=== PATIENT | female | born 1955 | race Caucasian/White ===

== ENCOUNTER 2016-08-13 17:44 | Inpatient (IN) | payer OTHER ==
[~2016-08-13] VITALS: Ht 157.5 cm; Wt 54.6 kg
[~2016-08-13 17:44] MED LIST: SYMBICORT1 AER
--- NOTE | 2016-08-13 19:04 | DIAGNOSTIC IMAGING REPORT ---
PROCEDURE: XR CHEST 2 VIEW INDICATION: COUGH TECHNIQUE: PA and lateral views. COMPARISON: 05/06/2012 FINDINGS: Lungs are clear. COPD. Heart and mediastinum are normal. Thorax is normal. IMPRESSION: 1. Negative chest.
--- NOTE | 2016-08-13 20:46 | ED CLINICAL REPORT ---
Clinical Report - Physicians/Mid Levels [facility] [address] [place] [address] 08/13/2016 17:44 Patient: REBECCA CHRISTINE Time Seen: 18:11 Aug 13 2016. Arrived- By private vehicle. Historian- patient. HISTORY OF PRESENT ILLNESS Chief Complaint: COUGH. This started 9 days and is still present. (patient with cough, shortness of breath, chills over the last 9 days,'s has seen her primary care provider 2 times, with completion of azithromycin treatment, finishing on the eighth. Patient reports history of underlying COPD. Denies any recent travel. Denies any fevers.). REVIEW OF SYSTEMS No headache, vomiting, abdominal pain, skin rash or enlarged lymph nodes. All systems otherwise negative, except as recorded above. SOCIAL HISTORY Former smoker. No alcohol use or drug use. ADDITIONAL NOTES The nursing notes have been reviewed. PHYSICAL EXAM Vital Signs: 08/13/2016 17:51 BP: 142/84. HR: 104. RR: 36. O2 saturation: 92%. Temp: 98 F. Pain level now: 8/10. Appearance: Alert. Eyes: Eyes normal inspection. ENT: Ears normal. Nose normal. Pharynx normal. Uvula midline. Neck: Normal inspection. CVS: Tachycardia. Normal heart rate and rhythm. Heart sounds normal. Pulses normal. Respiratory: Respiratory distress. Retractions. Accessory muscle use. Wheezing present. No decreased breath sounds or rales. Abdomen: Soft and nontender. Skin: Skin warm. LABS, X-RAYS, AND EKG Chest X-ray: (IMPRESSION: 1. Negative chest. Electronically Final signed by:Solo Valdez MD 08/13/2016 7:07:40 PM). Laboratory Tests: UA-Culture if indicated: (LUCIA: 08/13/2016 19:33) ( MsgRcvd 08/13/2016 19:59) Final results Test Result Flag Units (Reference) URINE COLOR YELLOW URINE APPEARANCE CLEAR URINE GLUCOSE NEGATIVE (NEGATIVE) URINE BILIRUBIN NEGATIVE (NEGATIVE) URINE KETONE TRACE (NEGATIVE) URINE SPECIFIC GRAVITY >= 1.030 (1.010-1.030) URINE PH 6.0 (5.0-8.0) URINE PROTEIN NEGATIVE (NEGATIVE) URINE UROBILINOGEN 0.2 EU/dL (0.2-1.0) URINE NITRITE NEGATIVE (NEGATIVE) URINE BLOOD NEGATIVE (NEGATIVE) URINE LEUK ESTERASE NEGATIVE (NEGATIVE) URINE RBC 0-1 rbc/hpf (0-1) URINE WBC 1-3 wbc/hpf (0-1) URINE EPITHELIAL CELLS 3-5 EPI/hpf (0-5) URINE BACTERIA TRACE (<1+) (NONE SEEN) URINE COMMENT CULT NOT INDICATED 2+ MUCUSURINE CULTURES ARE SET-UP BASED ON THE FOLLOWING CRITERIA:POSITIVE NITRITEPOSITIVE LEUKOCYTE ESTERASEGREATER THAN 10 WHITE BLOOD CELLSMODERATE (2+) OR GREATER BACTERIA CBC w Diff: (LUCIA: 08/13/2016 18:35) ( [facility] 08/13/[facility] 19:01) Final results Test Result Flag Units (Reference) WHITE BLOOD COUNT 7.6 K/uL (4.5-11.5) RED BLOOD COUNT 5.07 M/uL (4.00-5.20) HEMOGLOBIN 15.2 gm/dL (12.0-16.0) HEMATOCRIT 46.6 H % (36.0-46.0) MEAN CELL VOLUME 92 fL (80-100) MEAN CORPUSCULAR HGB 30 pg (26-34) MEAN CORPUSCULAR HGB CONC 33 g/dL (31-37) RED CELL DISTRIBUTION WIDTH 12.1 % (11.6-14.8) PLATELET COUNT 299 K/uL (150-400) NEUTROPHIL % 52.3 % (50-75) LYMPH % 36.1 % (25-40) MONO % 8.0 % (3-14) EOSINOPHIL % 1.0 % (0-4) BASOPHIL % 2.6 H % (0-2) [id number]: (LUCIA: 08/13/2016 18:35) ( ScgRcvd 08/13/2016 19:24) Final results Test Result Flag Units (Reference) D-DIMER QUANTITATIVE 0.31 ug/mLFEU (0.27-0.52) The primary value of this quantitative assay relates toits negative predictive value (i.e. exclusion) of pulmonaryembolism/deep vein thrombosis/DIC.Elevated levels of d-dimer may also occur with:, age, cancer, inflammation, liver disease,post-op, infection, hematoma, coronary disease, peripheralarteriopathy, bleeding disorders and thrombolytic treatment.Results should be correlated with other clinical andradiological data.Testing Methodology: Latex Immunoassay BMP: (LUCIA: 08/13/2016 18:35) ( MsgRcvd 08/13/2016 19:12) Final results Test Result Flag Units (Reference) GLUCOSE 100 mg/dL (70-110) BUN 16 mg/dL (7-18) CREATININE 1.1 mg/dL (0.6-1.3) Estimated GFR 54.03 mL/min Estimated GFR- >60 mL/min Note: Persistent reduction over 3 months in eGFR<60 mL/min/1.73 m2 defines CKD. Patients with eGFR values>=60 mL/min/1.73 m2 may also have CKD if evidence ofpersistent proteinuria. Additional information may be foundat www.kidney.org. SODIUM 137 mmol/L (136-145) POTASSIUM 3.8 mmol/L (3.5-5.1) CHLORIDE 100 mmol/L (98-107) CARBON DIOXIDE 27 mmol/L (21-32) CALCIUM 9.4 mg/dL (8.5-10.1) . PROGRESS AND PROCEDURES Course of Care: after IV fluid, IV Solu-Medrol, multiple breathing treatments in the ER, patient still able to talk in one to 2 word sentences, 30+ respirations. 2049 Discussed case with science liaison hospitalist, Failed, outpatient treatment. DR. Zendejas, agreed on treatment plan, will see in er [phone], here to see patient. 08/13/2016 20:48 BP: 103/66. HR: 95. RR: 18. O2 saturation: 95%. 08/13/2016 20:18 BP: 98/65. HR: 95. RR: 18. O2 saturation: 96%. Patient is stable. Disposition: Admitted. CLINICAL IMPRESSION Bronchitis. Reactive airway disease with acute bronchospasm. COPD exacerbation. INSTRUCTIONS Drink plenty of fluids. Prescription Medications: Robitussin A-C cough syrup take one (1) teaspoon orally every 6 hours as needed for cough for 5 days. Dispense one hundred twenty (120) mL. Substitution is permissible. Medrol Dosepak: take according to package directions. Dispense one (1) dosepak. No refills. Substitution is permissible. Follow-up: Follow up with your doctor in three days. (Electronically signed by Dolores Mata P.A.-C 08/13/2016 21:46)
--- NOTE | 2016-08-13 20:46 | ED CLINICAL REPORT ---
Clinical Report - Physicians/Mid Levels [facility] [address] [place] [address] 08/13/2016 17:44 Patient: REBECCA CHRISTINE Time Seen: 18:11 Aug 13 2016. Arrived- By private vehicle. Historian- patient. HISTORY OF PRESENT ILLNESS Chief Complaint: COUGH. This started 9 days and is still present. (patient with cough, shortness of breath, chills over the last 9 days,'s has seen her primary care provider 2 times, with completion of azithromycin treatment, finishing on the eighth. Patient reports history of underlying COPD. Denies any recent travel. Denies any fevers.). REVIEW OF SYSTEMS No headache, vomiting, abdominal pain, skin rash or enlarged lymph nodes. All systems otherwise negative, except as recorded above. SOCIAL HISTORY Former smoker. No alcohol use or drug use. ADDITIONAL NOTES The nursing notes have been reviewed. PHYSICAL EXAM Vital Signs: 08/13/2016 17:51 BP: 142/84. HR: 104. RR: 36. O2 saturation: 92%. Temp: 98 F. Pain level now: 8/10. Appearance: Alert. Eyes: Eyes normal inspection. ENT: Ears normal. Nose normal. Pharynx normal. Uvula midline. Neck: Normal inspection. CVS: Tachycardia. Normal heart rate and rhythm. Heart sounds normal. Pulses normal. Respiratory: Respiratory distress. Retractions. Accessory muscle use. Wheezing present. No decreased breath sounds or rales. Abdomen: Soft and nontender. Skin: Skin warm. LABS, X-RAYS, AND EKG Chest X-ray: (IMPRESSION: 1. Negative chest. Electronically Final signed by:Solo Valdez MD 08/13/2016 7:07:40 PM). Laboratory Tests: UA-Culture if indicated: (LUCIA: 08/13/2016 19:33) ( MsgRcvd 08/13/2016 19:59) Final results Test Result Flag Units (Reference) URINE COLOR YELLOW URINE APPEARANCE CLEAR URINE GLUCOSE NEGATIVE (NEGATIVE) URINE BILIRUBIN NEGATIVE (NEGATIVE) URINE KETONE TRACE (NEGATIVE) URINE SPECIFIC GRAVITY >= 1.030 (1.010-1.030) URINE PH 6.0 (5.0-8.0) URINE PROTEIN NEGATIVE (NEGATIVE) URINE UROBILINOGEN 0.2 EU/dL (0.2-1.0) URINE NITRITE NEGATIVE (NEGATIVE) URINE BLOOD NEGATIVE (NEGATIVE) URINE LEUK ESTERASE NEGATIVE (NEGATIVE) URINE RBC 0-1 rbc/hpf (0-1) URINE WBC 1-3 wbc/hpf (0-1) URINE EPITHELIAL CELLS 3-5 EPI/hpf (0-5) URINE BACTERIA TRACE (<1+) (NONE SEEN) URINE COMMENT CULT NOT INDICATED 2+ MUCUSURINE CULTURES ARE SET-UP BASED ON THE FOLLOWING CRITERIA:POSITIVE NITRITEPOSITIVE LEUKOCYTE ESTERASEGREATER THAN 10 WHITE BLOOD CELLSMODERATE (2+) OR GREATER BACTERIA CBC w Diff: (LUCIA: 08/13/2016 18:35) ( [facility] 08/13/2016 19:01) Final results Test Result Flag Units (Reference) WHITE BLOOD COUNT 7.6 K/uL (4.5-11.5) RED BLOOD COUNT 5.07 M/uL (4.00-5.20) HEMOGLOBIN 15.2 gm/dL (12.0-16.0) HEMATOCRIT 46.6 H % (36.0-46.0) MEAN CELL VOLUME 92 fL (80-100) MEAN CORPUSCULAR HGB 30 pg (26-34) MEAN CORPUSCULAR HGB CONC 33 g/dL (31-37) RED CELL DISTRIBUTION WIDTH 12.1 % (11.6-14.8) PLATELET COUNT 299 K/uL (150-400) NEUTROPHIL % 52.3 % (50-75) LYMPH % 36.1 % (25-40) MONO % 8.0 % (3-14) EOSINOPHIL % 1.0 % (0-4) BASOPHIL % 2.6 H % (0-2) [id number]: (LUCIA: 08/13/2016 18:35) ( NcgRcvd 08/13/2016 19:24) Final results Test Result Flag Units (Reference) D-DIMER QUANTITATIVE 0.31 ug/mLFEU (0.27-0.52) The primary value of this quantitative assay relates toits negative predictive value (i.e. exclusion) of pulmonaryembolism/deep vein thrombosis/DIC.Elevated levels of d-dimer may also occur with:, age, cancer, inflammation, liver disease,post-op, infection, hematoma, coronary disease, peripheralarteriopathy, bleeding disorders and thrombolytic treatment.Results should be correlated with other clinical andradiological data.Testing Methodology: Latex Immunoassay BMP: (LUCIA: 08/13/2016 18:35) ( MsgRcvd 08/13/2016 19:12) Final results Test Result Flag Units (Reference) GLUCOSE 100 mg/dL (70-110) BUN 16 mg/dL (7-18) CREATININE 1.1 mg/dL (0.6-1.3) Estimated GFR 54.03 mL/min Estimated GFR- >60 mL/min Note: Persistent reduction over 3 months in eGFR<60 mL/min/1.73 m2 defines CKD. Patients with eGFR values>=60 mL/min/1.73 m2 may also have CKD if evidence ofpersistent proteinuria. Additional information may be foundat www.kidney.org. SODIUM 137 mmol/L (136-145) POTASSIUM 3.8 mmol/L (3.5-5.1) CHLORIDE 100 mmol/L (98-107) CARBON DIOXIDE 27 mmol/L (21-32) CALCIUM 9.4 mg/dL (8.5-10.1) . PROGRESS AND PROCEDURES Course of Care: after IV fluid, IV Solu-Medrol, multiple breathing treatments in the ER, patient still able to talk in one to 2 word sentences, 30+ respirations. 2049 Discussed case with electronic service technician hospitalist, Failed, outpatient treatment. DR. Zendejas, agreed on treatment plan, will see in er 2144, here to see patient. 08/13/2016 20:48 BP: 103/66. HR: 95. RR: 18. O2 saturation: 95%. 08/13/2016 20:18 BP: 98/65. HR: 95. RR: 18. O2 saturation: 96%. Patient is stable. Disposition: Admitted. CLINICAL IMPRESSION Bronchitis. Reactive airway disease with acute bronchospasm. COPD exacerbation. INSTRUCTIONS Drink plenty of fluids. Prescription Medications: Robitussin A-C cough syrup take one (1) teaspoon orally every 6 hours as needed for cough for 5 days. Dispense one hundred twenty (120) mL. Substitution is permissible. Medrol Dosepak: take according to package directions. Dispense one (1) dosepak. No refills. Substitution is permissible. Follow-up: Follow up with your doctor in three days. (Electronically signed by Dolores Mata P.A.-C 08/13/2016 21:46)
--- NOTE | 2016-08-13 20:46 | ED ORDER SUMMARY ---
..... Patient: REBECCA CHRISTINE OrderSheet [facility] VisitID: [id number] [place] [address] 60y, F Registration Date/Time: 08/13/2016 ORDER SHEET Weight: 50.8 kg (stated) Allergies: No Known Drug Allergy GENERAL ORDERS: Chest 2V Urgent (18:08 08/13/2016 EKoroleva P.A.-C) (18:25 MCampbell) CBC w Diff Urgent (18:08 08/13/2016 EKoroleva P.A.-C) (Ack 18:33 LNations ER Tech1) (19:09 Estephanie R.N.) BMP Urgent (18:08 08/13/2016 EKoroleva P.A.-C) (Ack 18:34 LNations ER Tech1) (19:09 Estephanie R.N.) UA-Culture if indicated Urgent (18:08 08/13/2016 EKoroleva P.A.-C) (Ack 18:34 LNations ER Tech1) D-Dimer Urgent (18:08 08/13/2016 EKoroleva P.A.-C) (Ack 18:33 LNations ER Tech1) (19:09 Estephanie R.N.) Vitals (19:07 08/13/2016 EKoroleva P.A.-C) (19:20 Estephanie R.N.) Vitals (20:13 08/13/2016 EKoroleva P.A.-C) (20:20 LMuller) Blood Culture (Yes) (azithromycin) Urgent (20:57 08/13/2016 EKoroleva P.A.-C) (Ack 21:29 NHouse ER Tech1) (21:52 LMuller) MEDICATION ORDERS: DuoNeb Neb Tx 1 unit dose (NOW) (18:09 08/13/2016 EKoroleva P.A.-C) (18:23 RMcCarson) Albuterol Neb Tx 5 mg (NOW) (19:34 08/13/2016 EKoroleva P.A.-C) (Ack 19:36 RCollier R.N.) (19:37 RCollier R.N.) Tylenol w Codeine PO 2 tabs (HIGH ALERT MEDICATION, NOW) (20:23 08/13/2016 EKorolemarva P.A.-C) (Ack 20:43 RCcarlieier R.N.) (20:53 RCollier R.N.) IV FLUIDS: IV NS : initial bolus 1000 mL (1000 mL/hr), then 1000 mL/hr for X1 (NOW); Ernst (18:08 08/13/2016 EKoroleva P.A.-C) (Ack 18:24 Estephanie R.N.) (19:19 Estephanie R.N.) Solu-MEDROL IV 125 mg (NOW) (18:09 08/13/2016 Donovanlemarva P.A.-C) (Ack 18:24 Estephanie R.N.) (19:20 Estephanie R.N.) Levaquin IV 750 mg/150 mL (NOW) (20:57 08/13/2016 Fernando P.A.-C) (Ack 20:58 Ryelyier R.N.) (22:00 Ryleyier R.N.) ORDER SHEET NOTES: [Electronically signed by Dolores Mata-Eren (21:46 08/13/2016)] [Electronically signed by Monserrat Landrum R.N. (00:54 08/14/2016)] [Electronically locked/signed by Monserrat Landrum R.N. (00:54 08/14/2016)]
--- NOTE | 2016-08-13 20:46 | ED NURSING NOTES ---
Clinical Report - Nurses [facility] [address] [place] [address] 08/13/2016 17:44 [id number] Triage time 17:51. Acuity: LEVEL 3. Chief Complaint: COUGH and (DYSPNEA). Alert. SKINNY COMA SCORE: [place] Coma Scale: 15- eyes open spontaneously (4); best verbal response- oriented x 4 (5); best motor response- obeys commands (6). --17:59 Margie Patel R.N. 17:51 08/13/16. BP: 142/84. HR: 104. RR: 36. O2 saturation: 92%. Temp: 98 F (oral). Pain level now: 8/10. --17:59 Margie Patel R.N. Weight: 50.8 kg stated. Height/Length: 63 inches Per Patient. BMI: 19.8. --17:55 Margie Patel R.N. Medications Albuterol Sulfate Inhalation. --18:01 Margie Patel R.N. Another Inhaler. --18:02 Margie Patel R.N. The following entry was struck by Margie Patel R.N., 18:02 (08/13/16) Reason - other. <<STRICKEN ENTRY-- None. --17:52 Margie Patel R.N. --END STRIKE>>. Medication/allergy information source: the patient. --17:59 Margie Patel R.N. Allergies No Known Drug Allergy. --17:52 Margie Patel R.N. History Arrived by private vehicle. Historian: patient. Primary physician (Brii). Onset. (about 9 days). ( sent from doctor's office, has had a Z-krupa, breathing tx in the office, office reported a negative flu swab). She has had a headache. SOCIAL HX: Former smoker, end date 09/2015. No alcohol use or drug use. FALL RISK ASSESSMENT: Fall risk assessment completed. No fall risk identified. FUNCTIONAL ASSESSMENT: Functional assessment: no impairments noted. LEARNING NEEDS ASSESSMENT: The learning needs assessment revealed no barriers. --17:59 Margie Patel R.N. PROBLEMS: Sprain. Abdominal Pain. Immunizations. Bulging disch. Herniated Disk. --17:53 Margie Patel R.N. Gastroesophageal Reflux Disease [RuleOut]. --17:53 Margie Patel R.N. COPD - Chronic Obstructive Pulmonary Disease. --17:55 Margie Patel R.N. ADDITIONAL SURGERIES: Tubal Ligation. --17:54 Margie Patel R.N. Assessment GENERAL / NEURO / PSYCH: The patient is awake and alert, is oriented and cooperative and appears uncomfortable. She has good eye contact. RESPIRATORY: Mild respiratory distress. Cough productive of thick, yellow sputum. CVS: Cardiac rhythm: sinus tachycardia. SKIN: Skin is warm and dry. --17:59 Margie Patel R.N. Interventions ID band on patient. To treatment room. --17:59 Margie Patel R.N. PHYSICAL ASSESSMENT 18:08/13/16. To room via wheelchair. Patient gowned. GENERAL / NEURO / PSYCH: The patient is awake and alert, is oriented and cooperative and appears uncomfortable. She has good eye contact. RESPIRATORY: Mild respiratory distress. The patient can speak a few words at a time. Cough. SKIN: Skin is warm and dry. --18:04 Margie Patel R.N. NURSING PROGRESS NOTES 18:08/13/16. trimming assembler, pulse oximeter and NIBP monitor placed on patient. Patient gowned. Head of bed elevated. Call light placed in reach. Side rails up x 1. Bed placed in lowest position. Brakes of bed on. --18:04 Margie Patel R.N. 18:23 08/13/2016 Duoneb (Ipratropium-Albuterol) Neb TX Nebulizer 1 unit dose given. --18:23 Shanique Rehman 18:30 08/13/2016 Site #1 started via IV in the right antecubital space with an 20g angiocath, with aseptic technique and good blood return; one attempt. Blood drawn: rainbow set. Labeled in the presence of the patient and sent to the lab. --19:19 Margie Patel R.N. 18:30 08/13/2016 Started bag #1 1000 mL IV Fluids IV NS (Saline); at 1000 mL/hr over 1 hour(s) via site #1 --19:19 Margie Patel R.N. 19:20 08/13/2016 SOLU-MEDROL (MethylPREDNISolone Sodium Succ) IVP 125 mg given over 2 minute(s) via site #1. Allergies verified and confirmed 5 rights. IV patency established. IV site checked: no pain, redness, or swelling. IV flushed thoroughly pre- and post-medication administration. IVP given by RN. --19:20 Margie Patel R.N. 19:18 08/13/16. BP: 110/80. HR: 98. RR: 18. O2 saturation: 97%. --19:21 Virginia Kuhn Care transferred and report received. --19:30 Monserrat Landrum R.N. 19:10 08/13/2016 IV Fluids IV NS Bag Change: bag #1 infused. Total amount infused: 1000. STARTED bag #2 (1000 mL) at 100 mL/hr. --19:35 Margie Patel R.N. 19:37 08/13/2016 Albuterol Neb TX Nebulizer 5 mg given. Given by the respiratory therapist. Allergies verified and confirmed 5 rights. --19:37 Monserrat Landrum R.N. 20:18 08/13/16. BP: 98/65. HR: 95. RR: 18. O2 saturation: 96%. --20:20 Virginia Kuhn 20:48 08/13/16. BP: 103/66. HR: 95. RR: 18. O2 saturation: 95% on nasal cannula. --20:49 Monserrat Landrum R.N. The patient reports that after medication, breathing treatment and oxygen , wheezing is still present and currently mild in severity (audible, still working to breath). --20:50 Monserrat Landrum R.N. 20:50 08/13/2016 TYLENOL W CODEINE (Acetaminophen-Codeine) PO Tablets 2 tab given. Allergies verified and confirmed 5 rights. --20:53 Monserrat Landrum R.N. 21:58 08/13/2016 Started 750 mg of Levaquin (Levofloxacin) IVPB in bag #1 150 mL; at 100 mL/hr over 90 minute(s) via site #1 via IV pump. Allergies verified and confirmed 5 rights. IV patency established. IV site checked: no pain, redness, or swelling. IV flushed thoroughly pre- and post-medication administration. --22:00 Monserrat Landrum R.N. DISPOSITION / DISCHARGE 22:50 08/13/16. HR: 87. RR: 17. O2 saturation: 94%. Payne-Rodriguez pain scale: 4/10. --22:51 Monserrat Landrum R.N. Report was given to a nurse via a phone call. Report included patient's care, treatment, medications, reviewed medication reconcilliation, and condition (including any recent changes or anticipated changes). All questions were answered. Report was acknowledged and care was transferred. --22:51 Monserrat Landrum R.N. 22:56 08/13/16. BP: 110/60. --22:56 Monserart Landrum R.N. 22:56 08/13/2016 Site #[address] upon admission; patent. --22:56 Monserrat Landrum R.N. 22:58 08/13/2016 IV Fluids IV NS Continued: upon admission at the rate of 100 mL/hr. 250 mL remaining bag #2. IV patency established. IV site checked: no pain, redness, or swelling. IV flushed thoroughly. (bag has been hanging to gravity, not infused at rate ordered.). --22:58 Monserrat Landrum R.N. 22:59 08/13/2016 Levaquin IVPB Continued: upon admission at the rate of 100 mL/hr. 50 mL remaining bag #1. IV patency established. IV site checked: no pain, redness, or swelling. IV flushed thoroughly. --22:59 Monserrat Landrum R.N. Admitted to Acute Care. Patient's personal items include: purse, clothing; items were placed in belongings bag and transported with the patient. Collection of belongings was witnessed by 1 nurse. --23:00 Monserrat Landrum R.N. Locked/Released at 08/14/2016 0:54 by Monserrat Landrum R.N.
--- NOTE | 2016-08-13 20:46 | ED ORDER SUMMARY ---
..... Patient: REBECCA CHRISTINE OrderSheet [facility] VisitID: [id number] [place] [address] 60y, F Registration Date/Time: 08/13/2016 ORDER SHEET Weight: 50.8 kg (stated) Allergies: No Known Drug Allergy GENERAL ORDERS: Chest 2V Urgent (18:08 08/13/2016 EKoroleva P.A.-C) (18:25 MCampbell) CBC w Diff Urgent (18:08 08/13/2016 EKoroleva P.A.-C) (Ack 18:33 LNations ER Tech1) (19:09 Estephanie R.N.) BMP Urgent (18:08 08/13/2016 EKoroleva P.A.-C) (Ack 18:34 LNations ER Tech1) (19:09 Estephanie R.N.) UA-Culture if indicated Urgent (18:08 08/13/2016 EKoroleva P.A.-C) (Ack 18:34 LNations ER Tech1) D-Dimer Urgent (18:08 08/13/2016 EKoroleva P.A.-C) (Ack 18:33 LNations ER Tech1) (19:09 Estehpanie R.N.) Vitals (19:07 08/13/2016 EKoroleva P.A.-C) (19:20 Estephanie R.N.) Vitals (20:13 08/13/2016 EKoroleva P.A.-C) (20:20 LMuller) Blood Culture (Yes) (azithromycin) Urgent (20:57 08/13/2016 EKoroleva P.A.-C) (Ack 21:29 NHouse ER Tech1) (21:52 LMuller) MEDICATION ORDERS: DuoNeb Neb Tx 1 unit dose (NOW) (18:09 08/13/2016 EKoroleva P.A.-C) (18:23 RMcCarson) Albuterol Neb Tx 5 mg (NOW) (19:34 08/13/2016 EKoroleva P.A.-C) (Ack 19:36 RCollier R.N.) (19:37 RCollier R.N.) Tylenol w Codeine PO 2 tabs (HIGH ALERT MEDICATION, NOW) (20:23 08/13/2016 EKorolemarva P.A.-C) (Ack 20:43 RCcarlieier R.N.) (20:53 RCollier R.N.) IV FLUIDS: IV NS : initial bolus 1000 mL (1000 mL/hr), then 1000 mL/hr for X1 (NOW); Ernst (18:08 08/13/2016 EKoroleva P.A.-C) (Ack 18:24 Estephanie R.N.) (19:19 Estephanie R.N.) Solu-MEDROL IV 125 mg (NOW) (18:09 08/13/2016 Donovanlemarva P.A.-C) (Ack 18:24 Estephanie R.N.) (19:20 Estephanie R.N.) Levaquin IV 750 mg/150 mL (NOW) (20:57 08/13/2016 Fernando P.A.-C) (Ack 20:58 Ryleyier R.N.) (22:00 Ryleyier R.N.) ORDER SHEET NOTES: [Electronically signed by Dolores Mata-Eren (21:46 08/13/2016)] [Electronically signed by Monserrat Landrum R.N. (00:54 08/14/2016)] [Electronically locked/signed by Monserrat Landrum R.N. (00:54 08/14/2016)]
[2016-08-13 23:17] VITALS: BP 108/65
--- NOTE | 2016-08-14 00:54 | ED DISCHARGE INSTRUCTIONS ---
Patient: REBECCA CHRISTINE General Instructions [facility] VisitID: [id number] [place] [address] 60y, F Registration Date/Time: 08/13/2016 Bronchitis. Reactive airway disease with acute bronchospasm. COPD exacerbation. INSTRUCTIONS Drink plenty of fluids. Prescription Medications: Robitussin A-C cough syrup take one (1) teaspoon orally every 6 hours as needed for cough for 5 days. Dispense one hundred twenty (120) mL. Substitution is permissible. Medrol Dosepak: take according to package directions. Dispense one (1) dosepak. No refills. Substitution is permissible. Follow-up: Follow up with your doctor in three days. ADDITIONAL INFORMATION Bronchitis, Viral (Adult: No Abx) You have a viral bronchitis. This illness is contagious during the first few days and is spread through the air by coughing and sneezing, or by direct contact (touching the sick person and then touching your own eyes, nose, or mouth). Most viral illnesses resolve within 10-14 days with rest and simple home remedies, although they may sometimes last for several weeks. Antibiotics will not kill a virus and are generally not prescribed for this condition. Home Care: If symptoms are severe, rest at home for the first 2-3 days. When resuming activity, don't let yourself become overly tired. Do not smoke and avoid the smoke of others. You may use acetaminophen (Tylenol) or ibuprofen (Motrin, Advil) to control fever or pain, unless another pain medicine was prescribed. [NOTE: If you have chronic liver or kidney disease or ever had a stomach ulcer or GI bleeding, talk with your doctor before using these medicines.] (Aspirin should never be used in anyone under 18 years of age who is ill with a fever. It may cause severe liver damage.) Your appetite may be poor so a light diet is fine. Avoid dehydration by drinking 6-8 glasses of fluids per day (water, sport drinks such as Gatorade, juices, tea, soup, etc.). Extra fluids will help loosen secretions in the nose and lung. Amcr-zce-xuxkaqf cold medicines will not shorten the length of the illness, but may be helpful for cough (Robitussin DM), sore throat (Chloraseptic lozenges or spray), nasal and sinus congestion (Actifed or Sudafed). [NOTE: Do not use decongestants if you have high blood pressure.] Follow Up with your doctor or as directed by our staff if you are not improving over the next week. NOTE: If you are age 65 or older, or if you have chronic asthma or COPD, we recommend a PNEUMOCOCCAL VACCINATION every five years and a yearly INFLUENZAVACCINATION (FLU-SHOT) every . Ask your doctor about this. If you had an X-ray, a radiologist will review it. You will be notified of any new findings that may affect your care.] Get Prompt Medical Attention if any of the following occur: Fever over 100.4F (38.0C) for more than three days Trouble breathing, wheezing or pain with breathing Coughing up blood or increased amounts of colored sputum Weakness, drowsiness, headache, facial pain, ear pain or a stiff neck You have been given the following additional information: Bronchitis, No Antibiotic (Adult) (Electronically signed by Dolores Mata P.A.-C 08/13/2016 21:46)
--- NOTE | 2016-08-14 00:54 | ED MAR SUMMARY ---
..... Medication Administration Record [facility] [address] [facility] [place] [address] Patient: REBECCA CHRISTINE Visit ID: [id number] 60y, F Weight: 50.8 kg Height/Length: 63 in BMI: 19.8 ALLERGIES: No Known Drug Allergy Given 18:23 08/13/2016 Shanique Rehman, Medication Administered: DUONEB [NEB TX] (IPRATROPIUM-ALBUTEROL), Dose: 1 unit dose Nebulizer Neb TX. Medication Ordered: DuoNeb Neb Tx 1 unit dose (NOW). Start 18:30 08/13/2016 Margie Patel R.N., Continued Upon Admission 22:58 08/13/2016 Monserrat Landrum R.N. Medication Administered: IV NS (SALINE), Dose: IV Fluids over 1 hour(s), Rate: 1000 mL/hr, Dispensed: 1000 mL bag, Site: #1 right AC. Medication Ordered: IV NS : initial bolus 1000 mL (1000 mL/hr), then 1000 mL/hr for X1 (NOW); Ernst. Given 19:20 08/13/2016 Margie Patel R.N. Medication Administered: SOLU-MEDROL [IVP] (METHYLPREDNISOLONE SODIUM SUCC), Dose: 125 mg IVP over 2 minute(s), Site: #1 right AC. Medication Ordered: Solu-MEDROL IV 125 mg (NOW). Given 19:37 08/13/2016 Monserrat Landrum R.N. Medication Administered: ALBUTEROL [NEB TX], Dose: 5 mg Nebulizer Neb TX. Medication Ordered: Albuterol Neb Tx 5 mg (NOW). Given 20:50 08/13/2016 Monserrat Landrum R.N. Medication Administered: TYLENOL W CODEINE [PO] (ACETAMINOPHEN-CODEINE), Dose: 2 tab Tablets PO. Medication Ordered: Tylenol w Codeine PO 2 tabs (HIGH ALERT MEDICATION, NOW). Start 21:58 08/13/2016 Monserrat Landrum R.N., Continued Upon Admission 22:59 08/13/2016 Monserrat Landrum R.N. Medication Administered: LEVAQUIN [IVPB] (LEVOFLOXACIN), Dose: 750 mg IVPB over 90 minute(s), Rate: 100 mL/hr, Dispensed: 150 mL bag, Site: #1 right AC. Medication Ordered: Levaquin IV 750 mg/150 mL (NOW).
--- NOTE | 2016-08-14 00:54 | ED MED RECONCILIATION SUMMARY ---
Patient: REBECCA CHRISTINE Medication Reconciliation Report [facility] VisitID: [id number] [address] [place] [address] 60y, F Registration Date/Time: 08/13/2016 Weight: 50.8 kg Height/Length: 63 in. BMI: 19.8 ALLERGIES: No Known Drug Allergy The patient's Home Medications are listed below: THE FOLLOWING MEDICATIONS NEED TO BE RECONCILED: Albuterol Sulfate Inhalation Another Inhaler The source(s) of the original Home Medication information: patient The following Medications were given to the patient in the Emergency Department: Duoneb [Neb Tx] Neb TX 1 unit dose, administered: 08/13/2016 6:23:00 PM IV NS IV Fluids bolus 0, then 1000 mL/hr, administered: 08/13/2016 6:30:00 PM SOLU-MEDROL [IVP] IVP 125 mg, administered: 08/13/2016 7:20:00 PM Albuterol [Neb Tx] Neb TX 5 mg, administered: 08/13/2016 7:37:00 PM TYLENOL W CODEINE [PO] PO 2 tab, administered: 08/13/2016 8:50:00 PM Levaquin [IVPB] IVPB bolus 0, then 750 mg 100 mL/hr, administered: 08/13/2016 9:58:00 PM The following Medications were prescribed to the patient: Robitussin A-C cough syrup take one (1) teaspoon orally every 6 hours as needed for cough for 5 days. Dispense one hundred twenty (120) mL. Substitution is permissible. -- Dolores Mata P.A.-C Medrol Dosepak: take according to package directions. Dispense one (1) dosepak. No refills. Substitution is permissible. -- Dolores Mata P.A.-C
--- NOTE | 2016-08-14 00:54 | ED MAR SUMMARY ---
..... Medication Administration Record [facility] [address] [facility] [place] [address] Patient: REBECCA CHRISTINE Visit ID: [id number] 60y, F Weight: 50.8 kg Height/Length: 63 in BMI: 19.8 ALLERGIES: No Known Drug Allergy Given 18:23 08/13/2016 Shanique Rehman, Medication Administered: DUONEB [NEB TX] (IPRATROPIUM-ALBUTEROL), Dose: 1 unit dose Nebulizer Neb TX. Medication Ordered: DuoNeb Neb Tx 1 unit dose (NOW). Start 18:30 08/13/2016 Margie Patel R.N., Continued Upon Admission 22:58 08/13/2016 Monserrat Landrum R.N. Medication Administered: IV NS (SALINE), Dose: IV Fluids over 1 hour(s), Rate: 1000 mL/hr, Dispensed: 1000 mL bag, Site: #1 right AC. Medication Ordered: IV NS : initial bolus 1000 mL (1000 mL/hr), then 1000 mL/hr for X1 (NOW); Ernst. Given 19:20 08/13/2016 Margie Patel R.N. Medication Administered: SOLU-MEDROL [IVP] (METHYLPREDNISOLONE SODIUM SUCC), Dose: 125 mg IVP over 2 minute(s), Site: #1 right AC. Medication Ordered: Solu-MEDROL IV 125 mg (NOW). Given 19:37 08/13/2016 Monserrat Landrum R.N. Medication Administered: ALBUTEROL [NEB TX], Dose: 5 mg Nebulizer Neb TX. Medication Ordered: Albuterol Neb Tx 5 mg (NOW). Given 20:50 08/13/2016 Monserrat Landrum R.N. Medication Administered: TYLENOL W CODEINE [PO] (ACETAMINOPHEN-CODEINE), Dose: 2 tab Tablets PO. Medication Ordered: Tylenol w Codeine PO 2 tabs (HIGH ALERT MEDICATION, NOW). Start 21:58 08/13/2016 Monserrat Landrum R.N., Continued Upon Admission 22:59 08/13/2016 Monserrat Landrum R.N. Medication Administered: LEVAQUIN [IVPB] (LEVOFLOXACIN), Dose: 750 mg IVPB over 90 minute(s), Rate: 100 mL/hr, Dispensed: 150 mL bag, Site: #1 right AC. Medication Ordered: Levaquin IV 750 mg/150 mL (NOW).
--- NOTE | 2016-08-14 00:54 | ED MED RECONCILIATION SUMMARY ---
Patient: REBECCA CHRISTINE Medication Reconciliation Report [facility] VisitID: [id number] [address] [place] [address] 60y, F Registration Date/Time: 08/13/2016 Weight: 50.8 kg Height/Length: 63 in. BMI: 19.8 ALLERGIES: No Known Drug Allergy The patient's Home Medications are listed below: THE FOLLOWING MEDICATIONS NEED TO BE RECONCILED: Albuterol Sulfate Inhalation Another Inhaler The source(s) of the original Home Medication information: patient The following Medications were given to the patient in the Emergency Department: Duoneb [Neb Tx] Neb TX 1 unit dose, administered: 08/13/2016 6:23:00 PM IV NS IV Fluids bolus 0, then 1000 mL/hr, administered: 08/13/2016 6:30:00 PM SOLU-MEDROL [IVP] IVP 125 mg, administered: 08/13/2016 7:20:00 PM Albuterol [Neb Tx] Neb TX 5 mg, administered: 08/13/2016 7:37:00 PM TYLENOL W CODEINE [PO] PO 2 tab, administered: 08/13/2016 8:50:00 PM Levaquin [IVPB] IVPB bolus 0, then 750 mg 100 mL/hr, administered: 08/13/2016 9:58:00 PM The following Medications were prescribed to the patient: Robitussin A-C cough syrup take one (1) teaspoon orally every 6 hours as needed for cough for 5 days. Dispense one hundred twenty (120) mL. Substitution is permissible. -- Dolores Mata P.A.-C Medrol Dosepak: take according to package directions. Dispense one (1) dosepak. No refills. Substitution is permissible. -- Dolores Mata P.A.-C
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
[2016-08-14 02:24] VITALS: BP 94/54
[2016-08-14 07:15] VITALS: BP 110/64
[2016-08-14 10:56] VITALS: BP 98/64
[2016-08-14 14:52] VITALS: BP 104/61
[2016-08-14 18:05] VITALS: BP 109/65
[2016-08-14 22:46] VITALS: BP 101/56
--- NOTE | 2016-08-15 00:59 | Progress Note ---
Subjective General SOB/cough very mildly improved. No nausea, vomitting, diarrhea, constipation. + abdominal pain / chest pain with coughing. No chest pain when not coughing. Physical Exam Vital Signs / I&Os Vital Signs Date Time Temp Pulse Resp B/P Pulse O2 O2 Flow FiO2 Ox Delivery Rate 08/14 2246 36.7 84 16 101/56 92 Room Air 0.0 08/14 1805 36.8 83 16 109/65 92 Room Air 08/14 1452 36.7 95 18 104/61 91 Room Air 08/14 1056 36.9 80 18 98/64 94 Nasal 0.0 Cannula 08/14 0715 36.6 74 18 110/64 94 Nasal 2.0 Cannula 08/14 0350 18 94 Nasal 2.0 Cannula 08/14 0224 36.7 84 22 94/54 90 Room Air I&O 08/15 0000 08/14 1600 08/14 0800 Intake Total 1169 680 795 Output Total 650 400 400 Balance 519 280 395 General Appearance Alert, Cooperative, No acute distress Lungs Course diffusely with difuse moderate wheezing and Ok air movement, but air movement still significantly decreased. Cardiovascular Regular rate and rhythm, Normal S1 and S2, No murmurs, gallops, rubs Abdomen Normal bowel sounds, Soft, No tenderness Extremities No edema Assessment and Plan Problem List 1. COPD exacerbation Plan On steroids, duonebs, and antibiotics. Possible very mild improvement today. Continues to have significant, worrisome symptoms. Will monitor x 1-2 more days.
[2016-08-15 02:11] VITALS: BP 106/62
[2016-08-15 07:24] VITALS: BP 111/64
[2016-08-15 11:45] VITALS: BP 112/58
[2016-08-15 14:45] VITALS: BP 106/54
--- NOTE | 2016-08-15 17:58 | Progress Note ---
Subjective General Patient is seen at the [facility], severe cough and extensive wheezing present Physical Exam Vital Signs / I&Os Vital Signs Date Time Temp Pulse Resp B/P Pulse O2 O2 Flow FiO2 Ox Delivery Rate 08/15 1445 98.2 95 18 106/54 94 Room Air 08/15 1145 97.9 93 18 112/58 92 08/15 0803 Room Air 08/15 0724 97.9 99 18 111/64 99 Room Air 0.0 08/15 0211 98.4 87 16 106/62 91 Room Air 0.0 08/14 2246 98.1 84 16 101/56 92 Room Air 0.0 08/14 1805 98.2 83 16 109/65 92 Room Air I&O 08/14 0800 08/14 1600 08/15 0000 Intake Total 955 560 3746 Output Total 400 400 650 Balance 395 280 519 General Appearance Alert, Oriented X3, No acute distress HEENT PERRLA, Moist mucous membranes Lungs Clear to auscultation, Normal air movement Neck Supple, No JVD Cardiovascular Regular rate and rhythm, Normal S1 and S2 Abdomen Normal bowel sounds, Soft, No tenderness, No guarding Extremities No edema Neurological No lateralizing signs LAB Results Laboratory Tests 08/15 08/15 08/15 0500 0555 0555 Chemistry Plasma Sodium (136 - 145 mmol/L) 142 Plasma Potassium (3.5 - 5.1 mmol/L) 3.6 Plasma Chloride (98 - 107 mmol/L) 109 CO2 (Enzymatic) (21 - 32 mmol/L) 26 BUN (7 - 18 mg/dL) 11 Creatinine (0.6 - 1.3 mg/dL) 1.0 Est GFR ( Amer) (mL/min) >60 Est GFR (Non-Af Amer) (mL/min) >60 Glucose (70 - 110 mg/dL) 140 Plasma Calcium (8.5 - 10.1 mg/dL) 8.6 Procalcitonin (0 - 0.5 ng/mL) <0.5 Cancelled Hematology WBC (4.5 - 11.5 K/uL) 16.4 RBC (4.00 - 5.20 M/uL) 3.88 Hgb (12.0 - 16.0 gm/dL) 11.9 Hct (36.0 - 46.0 %) 36.2 MCV (80 - 100 fL) 93 MCH (26 - 34 pg) 31 RDW (11.6 - 14.8 %) 12.1 Neut % (Auto) (50 - 75 %) 94.4 Lymph % (Auto) (25 - 40 %) 4.7 [place] % (Auto) (3 - 14 %) 0.9 Eos % (Auto) (0 - 4 %) 0 Baso % (Auto) (0 - 2 %) 0 Plt Count, EDTA (150 - 400 K/uL) 222 PUBS MCHC (31 - 37 g/dL) 33 Assessment and Plan Problem List 1. COPD exacerbation Plan C/w current regimen of steroids an dduo nebs E&M Codes Rounding: Inpt-Moderate/19079
--- NOTE | 2016-08-15 17:58 | Progress Note ---
Subjective General Patient [facility], severe cough and extensive wheezing present Physical Exam Vital Signs / I&Os Vital Signs Date Time Temp Pulse Resp B/P Pulse O2 O2 Flow FiO2 Ox Delivery Rate 08/15 1445 98.2 95 18 106/54 94 Room Air 08/15 1145 97.9 93 18 112/58 92 08/15 0803 Room Air 08/15 0724 97.9 99 18 111/64 99 Room Air 0.0 08/15 0211 98.4 87 16 106/62 91 Room Air 0.0 08/14 2246 98.1 84 16 101/56 92 Room Air 0.0 08/14 1805 98.2 83 16 109/65 92 Room Air I&O 08/14 0800 08/14 1600 08/15 0000 Intake Total 817 915 0385 Output Total 400 400 650 Balance 395 280 519 General Appearance Alert, Oriented X3, No acute distress HEENT PERRLA, Moist mucous membranes Lungs Clear to auscultation, Normal air movement Neck Supple, No JVD Cardiovascular Regular rate and rhythm, Normal S1 and S2 Abdomen Normal bowel sounds, Soft, No tenderness, No guarding Extremities No edema Neurological No lateralizing signs LAB Results Laboratory Tests 08/15 08/15 08/15 0500 0555 0555 Chemistry Plasma Sodium (136 - 145 mmol/L) 142 Plasma Potassium (3.5 - 5.1 mmol/L) 3.6 Plasma Chloride (98 - 107 mmol/L) 109 CO2 (Enzymatic) (21 - 32 mmol/L) 26 BUN (7 - 18 mg/dL) 11 Creatinine (0.6 - 1.3 mg/dL) 1.0 Est GFR ( Amer) (mL/min) >60 Est GFR (Non-Af Amer) (mL/min) >60 Glucose (70 - 110 mg/dL) 140 Plasma Calcium (8.5 - 10.1 mg/dL) 8.6 Procalcitonin (0 - 0.5 ng/mL) <0.5 Cancelled Hematology WBC (4.5 - 11.5 K/uL) 16.4 RBC (4.00 - 5.20 M/uL) 3.88 Hgb (12.0 - 16.0 gm/dL) 11.9 Hct (36.0 - 46.0 %) 36.2 MCV (80 - 100 fL) 93 MCH (26 - 34 pg) 31 RDW (11.6 - 14.8 %) 12.1 Neut % (Auto) (50 - 75 %) 94.4 Lymph % (Auto) (25 - 40 %) 4.7 [place] % (Auto) (3 - 14 %) 0.9 Eos % (Auto) (0 - 4 %) 0 Baso % (Auto) (0 - 2 %) 0 Plt Count, EDTA (150 - 400 K/uL) 222 PUBS MCHC (31 - 37 g/dL) 33 Assessment and Plan Problem List 1. COPD exacerbation Plan C/w current regimen of steroids an dduo nebs E&M Codes Rounding: Inpt-Moderate/37107
[2016-08-15 18:30] VITALS: BP 109/59
[2016-08-15 22:26] VITALS: BP 104/59
[2016-08-16 02:12] VITALS: BP 110/60
[2016-08-16 06:59] VITALS: BP 151/56
[2016-08-16 10:58] VITALS: BP 138/66
[2016-08-16 14:22] VITALS: BP 117/64
--- NOTE | 2016-08-16 14:36 | Progress Note ---
Subjective General Patient is seen at the bedside, c/o cough and wheezing Constitutional Denies: Fever, Chills, Sweats, Weakness. Eyes Denies: Vision Change, Conjunctival Inflammation, Eyelid Inflammation, Redness. ENT Denies: Nasal Discharge, Nasal Congestion, Mouth Pain, Throat Swelling. Respiratory Cough, Dry, SOB w/exertion, Wheezing. Cardiovascular Denies: Chest Pain, Palpitations, Orthopnea, PND. Gastrointestinal Denies: Nausea, Vomiting, Abdominal Pain. Genitourinary Denies: Dysuria, Frequency, Incontinence, Hematuria. Neurological Denies: Incoordination, Change in speech, Confusion. Physical Exam Vital Signs / I&Os Vital Signs Date Time Temp Pulse Resp B/P Pulse O2 O2 Flow FiO2 Ox Delivery Rate 08/16 1422 97.9 92 16 117/64 93 Room Air 0.0 08/16 1058 114 22 138/66 92 Room Air 0.0 08/16 0953 0.0 08/16 0659 97.5 68 18 151/56 92 Room Air 0.0 08/16 0212 98.4 84 16 110/60 93 Room Air 08/16 0119 0.0 08/15 2328 Room Air 08/15 2226 98.1 84 18 104/59 94 Room Air 0.0 08/15 1830 97.9 93 18 109/59 94 Room Air 08/15 1445 98.2 95 18 106/54 94 Room Air I&O 08/15 0800 08/15 1600 08/16 0000 Intake Total 570 500 120 Output Total 400 700 Balance 170 -200 120 General Appearance Alert, Oriented X3, No acute distress HEENT Atraumatic, PERRLA, Moist mucous membranes Assessment and Plan Problem List 1. COPD exacerbation Plan Patient still very symptomatic will change oral prednisone to IV solumedrol c/w duo nebs every 4 hrly E&M Codes Rounding: Inpt-Moderate/14045
[2016-08-16 18:00] VITALS: BP 134/65
[2016-08-16 22:27] VITALS: BP 115/66
[2016-08-17 01:51] VITALS: BP 118/74
[2016-08-17 06:59] VITALS: BP 121/79
[2016-08-17 11:15] VITALS: BP 111/65
[2016-08-17 14:53] VITALS: BP 116/66
--- NOTE | 2016-08-17 15:20 | DIAGNOSTIC IMAGING REPORT ---
PROCEDURE: XR CHEST 1 VIEW INDICATION: worsening cough r/o pneumonia TECHNIQUE: Portable AP view 03:00 p.m. COMPARISON: Chest 08/13/2016 and 05/06/2012 FINDINGS: Lungs are clear. Heart and mediastinum are normal. Thorax is normal. IMPRESSION: 1. Negative chest.
--- NOTE | 2016-08-17 17:18 | Progress Note ---
Subjective General Patient says she is still not feeling good, says her symptoms are not better, and c/o severe cough with sob Constitutional Denies: Fever, Chills, Sweats, Weakness. ENT Denies: Nasal Discharge, Nasal Congestion, Mouth Pain, Mouth Swelling, Throat Pain, Throat Swelling. Respiratory Cough, Dry, SOB w/exertion, Wheezing. Cardiovascular Denies: Chest Pain, Palpitations, Orthopnea, PND, Edema. Gastrointestinal Denies: Nausea, Vomiting, Abdominal Pain, Diarrhea, Constipation. Genitourinary Denies: Frequency, Incontinence, Hematuria. Musculoskeletal Denies: Arm Pain, Back Pain, Hand Pain, Leg Pain. Neurological Denies: Numbness, Incoordination, Change in speech, Confusion, Seizures. Physical Exam Vital Signs / I&Os Vital Signs Date Time Temp Pulse Resp B/P Pulse O2 O2 Flow FiO2 Ox Delivery Rate 08/17 1453 97.9 84 20 116/66 90 Room Air 0.0 08/17 1115 97.0 84 20 111/65 96 Room Air 0.0 08/17 0900 Room Air 0.0 08/17 0659 98.2 91 20 121/79 95 Room Air 0.0 08/17 0151 97.9 96 20 118/74 93 Room Air 08/17 0030 Room Air 0.0 08/16 2303 0.0 08/16 2227 97.7 95 20 115/66 91 0.0 08/16 1800 97.9 115 16 134/65 93 Room Air 0.0 I&O 08/16 0800 08/16 1600 08/17 0000 Intake Total 500 760 Output Total 500 1000 300 Balance 0 -240 -300 General Appearance Alert, Oriented X3, No acute distress HEENT PERRLA, Moist mucous membranes Lungs wheezing present Neck No JVD Cardiovascular Regular rate and rhythm, Normal S1 and S2 Abdomen Normal bowel sounds, Soft, No tenderness, No guarding Extremities No edema Neurological No lateralizing signs LAB Results Laboratory Tests 08/17 0533 Chemistry Plasma Sodium (136 - 145 mmol/L) 142 Plasma Potassium (3.5 - 5.1 mmol/L) 3.9 Plasma Chloride (98 - 107 mmol/L) 107 CO2 (Enzymatic) (21 - 32 mmol/L) 29 BUN (7 - 18 mg/dL) 13 Creatinine (0.6 - 1.3 mg/dL) 1.0 Est GFR ( Amer) (mL/min) >60 Est GFR (Non-Af Amer) (mL/min) >60 Glucose (70 - 110 mg/dL) 124 Plasma Calcium (8.5 - 10.1 mg/dL) 8.6 Hematology WBC (4.5 - 11.5 K/uL) 12.0 RBC (4.00 - 5.20 M/uL) 3.96 Hgb (12.0 - 16.0 gm/dL) 11.9 Hct (36.0 - 46.0 %) 36.9 MCV (80 - 100 fL) 93 MCH (26 - 34 pg) 30 RDW (11.6 - 14.8 %) 12.7 Neut % (Auto) (50 - 75 %) 87.3 Lymph % (Auto) (25 - 40 %) 9.2 [place] % (Auto) (3 - 14 %) 3.3 Eos % (Auto) (0 - 4 %) 0 Baso % (Auto) (0 - 2 %) 0.2 Plt Count, EDTA (150 - 400 K/uL) 237 PUBS MCHC (31 - 37 g/dL) 32 Assessment and Plan Problem List 1. COPD exacerbation Plan patient still symptomatic will increase steroid dos to 60mh IV q 8hrly duo nebs as ordered c/w levoquin will start gentle IV hydration E&M Codes Rounding: Inpt-Moderate/[id number]
[2016-08-17 18:25] VITALS: BP 112/67
[2016-08-17 22:25] VITALS: BP 119/76
[2016-08-18 02:16] VITALS: BP 133/79; BP 150/83
[2016-08-18 06:57] VITALS: BP 143/85
[2016-08-18 10:55] VITALS: BP 133/82
[2016-08-18 14:51] VITALS: BP 110/69
--- NOTE | 2016-08-18 15:54 | Progress Note ---
Subjective General Patient is seen at the bedside, still wheezing Constitutional Denies: Fever, Chills, Sweats, Weakness. Respiratory Cough, Dry, SOB w/exertion, Wheezing. Cardiovascular Denies: Chest Pain, Palpitations, Orthopnea, PND, Edema. Gastrointestinal Denies: Nausea, Vomiting, Abdominal Pain, Diarrhea. Genitourinary Denies: Incontinence. Musculoskeletal Denies: Back Pain. Neurological Denies: Weakness, Numbness, Incoordination, Change in speech, Confusion. Physical Exam Vital Signs / I&Os Vital Signs Date Time Temp Pulse Resp B/P Pulse O2 O2 Flow FiO2 Ox Delivery Rate 08/18 1451 98.2 82 20 110/69 92 Room Air 0.0 08/18 1057 97.5 08/18 1055 82 20 133/82 95 Room Air 0.0 08/18 1008 0.0 08/18 0657 97.7 69 22 143/85 92 Room Air 0.0 08/18 0216 98.2 78 16 133/79 93 Room Air 08/18 0009 Room Air 08/17 2225 98.1 94 18 119/76 93 Room Air 08/17 1956 Room Air 08/17 1825 98.4 89 20 112/67 94 Room Air 0.0 I&O 08/17 0800 08/17 1600 08/18 0000 Intake Total 2040 600 Output Total 1050 300 Balance 990 300 General Appearance Alert, Oriented X3, No acute distress HEENT Normal exam, PERRLA, Moist mucous membranes Lungs wheezing bilateral present Neck No JVD Cardiovascular Regular rate and rhythm, Normal S1 and S2 Abdomen Normal bowel sounds, Soft, No tenderness, No guarding Extremities No edema Neurological No lateralizing signs LAB Results Laboratory Tests 08/18 0638 Hematology WBC (4.5 - 11.5 K/uL) 11.5 RBC (4.00 - 5.20 M/uL) 4.11 Hgb (12.0 - 16.0 gm/dL) 12.6 Hct (36.0 - 46.0 %) 38.4 MCV (80 - 100 fL) 93 MCH (26 - 34 pg) 31 RDW (11.6 - 14.8 %) 12.8 Neut % (Auto) (50 - 75 %) 89.1 Lymph % (Auto) (25 - 40 %) 8.7 [place] % (Auto) (3 - 14 %) 1.9 Eos % (Auto) (0 - 4 %) 0 Baso % (Auto) (0 - 2 %) 0.3 Plt Count, EDTA (150 - 400 K/uL) 259 PUBS MCHC (31 - 37 g/dL) 33 Assessment and Plan Problem List 1. COPD exacerbation Plan condition little better then yesterday c/w IV steroids 60mg q 8hrly Duo nebs q4hrly oxygen as needed c/w levofloxacin add mucolytics, expectorants doesn't have beneficial effects in COPD patients PPI and lovenox for GI and DVT px E&M Codes Rounding: Inpt-High/[id number]
[2016-08-18 19:35] VITALS: BP 116/71
[2016-08-18 22:32] VITALS: BP 113/66
[2016-08-19 02:52] VITALS: BP 115/72
[2016-08-19 07:12] VITALS: BP 117/57
[2016-08-19 11:09] VITALS: BP 130/89
--- NOTE | 2016-08-19 12:43 | Progress Note ---
Subjective General 60 y/o female patient with PMH of COPD, h/o chronic smoking is admitted with COPD exacerbation, still quiet symptomatic, made changes in her steroid dose and IV antibiotics Constitutional Denies: Fever, Chills, Sweats. Respiratory Cough, Dry, SOB w/exertion, Wheezing. Cardiovascular Denies: Chest Pain, Palpitations, Orthopnea, PND. Gastrointestinal Denies: Nausea, Vomiting, Abdominal Pain, Diarrhea, Constipation. Physical Exam Vital Signs / I&Os Vital Signs Date Time Temp Pulse Resp B/P Pulse O2 O2 Flow FiO2 Ox Delivery Rate 08/19 1109 97.9 80 18 130/89 93 Room Air 0.0 08/19 0939 93 08/19 0712 97.7 79 18 117/57 93 Room Air 0.0 08/19 0252 98.1 89 17 115/72 91 Room Air 08/18 2256 Room Air 08/18 2232 98.2 79 18 113/66 95 Room Air 08/18 1935 97.9 94 28 116/71 94 Room Air 08/18 1451 98.2 82 20 110/69 92 Room Air 0.0 I&O 08/18 0800 08/18 1600 08/19 0000 Intake Total 1191 100 420 Output Total 1700 250 300 Balance -509 -150 120 General Appearance Alert, Oriented X3, No acute distress HEENT Normal exam, PERRLA, Moist mucous membranes Lungs Clear to auscultation Neck Normal exam, Supple, No JVD Cardiovascular Regular rate and rhythm, Normal S1 and S2 Abdomen Normal bowel sounds, Soft, No tenderness, No guarding Extremities No edema Neurological No lateralizing signs LAB Results Laboratory Tests 08/19 08/19 0515 0750 Chemistry Plasma Sodium (136 - 145 mmol/L) 140 Plasma Potassium (3.5 - 5.1 mmol/L) 3.5 Plasma Chloride (98 - 107 mmol/L) 103 CO2 (Enzymatic) (21 - 32 mmol/L) 28 BUN (7 - 18 mg/dL) 19 Creatinine (0.6 - 1.3 mg/dL) 1.1 Est GFR ( Amer) (mL/min) >60 Est GFR (Non-Af Amer) (mL/min) 54.03 Glucose (70 - 110 mg/dL) 130 Plasma Calcium (8.5 - 10.1 mg/dL) 8.6 Procalcitonin (0 - 0.5 ng/mL) <0.5 Hematology WBC (4.5 - 11.5 K/uL) 12.4 RBC (4.00 - 5.20 M/uL) 4.20 Hgb (12.0 - 16.0 gm/dL) 12.8 Hct (36.0 - 46.0 %) 39.2 MCV (80 - 100 fL) 93 MCH (26 - 34 pg) 31 RDW (11.6 - 14.8 %) 12.7 Neut % (Auto) (50 - 75 %) 91.2 Lymph % (Auto) (25 - 40 %) 6.6 [place] % (Auto) (3 - 14 %) 2.1 Eos % (Auto) (0 - 4 %) 0 Baso % (Auto) (0 - 2 %) 0.1 Plt Count, EDTA (150 - 400 K/uL) 290 PUBS MCHC (31 - 37 g/dL) 33 Assessment and Plan Problem List 1. COPD exacerbation Plan Pateint still pretty symptomatic increase IV solumedrol to 60 mh q 6hrly c/w duo nebs change levofloxacin to ceftriaxone and zithromax acetylcysteine as mucolytic Patient's condition: Guarded Anticipated discharge: 1-2 days E&M Codes Rounding: Inpt-Moderate/[id number]
--- NOTE | 2016-08-19 13:34 | DIAGNOSTIC IMAGING REPORT ---
PROCEDURE: CT THORAX WITH CONTRAST INDICATION: Persistent dyspnea and wheezing. TECHNIQUE: 100 ml of Isovue 300 injected intravenously and axial images were obtained of the entire thorax with sagittal and coronal reconstructions. COMPARISON: Compared to chest x-ray (08/17/2016) and CT thorax (04/27/2014). FINDINGS: Mild bilateral mid and upper lung emphysematous changes. Mild bibasilar linear scarring. Lungs are otherwise clear. Heart and mediastinum are normal. Thorax is normal. IMPRESSION: 1. Chronic obstructive pulmonary disease with mild bilateral emphysematous changes. 2. Otherwise negative CT thorax. All CT scans at this facility use dose modulation, iterative reconstruction, and/or weight-based dosing when appropriate to reduce radiation dose to as low as reasonably achievable.
[2016-08-19 14:14] VITALS: BP 138/84
[2016-08-19 18:05] VITALS: BP 103/67
[2016-08-19 22:36] VITALS: BP 119/81
[2016-08-20 02:33] VITALS: BP 116/71
[2016-08-20 06:58] VITALS: BP 122/79
[2016-08-20 10:16] VITALS: BP 121/67
--- NOTE | 2016-08-20 14:27 | Progress Note ---
Subjective General Patient is still having significant wheezing and notes some very small in improvement since yesterday. She denies any fevers or chills. She was switched to IV Rocephin and IV azithromycin yesterday. She did have CT of the chest which revealed COPD and emphysematous changes with no other findings. Constitutional Malaise. Denies: Fever, Chills, Sweats. Respiratory Cough, Dry, SOB w/exertion, Wheezing. Cardiovascular Denies: Chest Pain, Palpitations, Edema. Gastrointestinal Denies: Nausea, Vomiting, Diarrhea, Constipation. Physical Exam Vital Signs / I&Os Vital Signs Date Time Temp Pulse Resp B/P Pulse O2 O2 Flow FiO2 Ox Delivery Rate 08/20 1016 97.9 80 18 121/67 96 Room Air 0.0 08/20 0814 Room Air 0.0 08/20 0658 97.9 71 18 122/79 94 Room Air 0.0 08/20 0233 97.9 78 18 116/71 94 Room Air 08/20 0211 Room Air 08/19 2236 98.1 81 20 119/81 95 Room Air 08/19 1805 97.9 76 18 103/67 93 Room Air 0.0 I&O 08/19 0800 08/19 1600 08/20 0000 Intake Total 600 480 900 Output Total 1500 1250 850 Balance -900 -770 50 General Appearance Alert, Oriented X3, Cooperative HEENT Normal exam, PERRLA, EOMI Lungs diffuse expiratory wheezes. And areas of decreased air movement in the posterior lower bases. Cardiovascular Regular rate and rhythm, Normal S1 and S2, No murmurs, gallops, rubs Abdomen Normal bowel sounds, Soft, No tenderness Extremities No edema Skin No Rashes Neurological No lateralizing signs Psych/Mental Status Mental status normal LAB Results Laboratory Tests 08/20 526 Chemistry Plasma Sodium (136 - 145 mmol/L) 139 Plasma Potassium (3.5 - 5.1 mmol/L) 4.0 Plasma Chloride (98 - 107 mmol/L) 103 CO2 (Enzymatic) (21 - 32 mmol/L) 27 BUN (7 - 18 mg/dL) 19 Creatinine (0.6 - 1.3 mg/dL) 1.1 Est GFR ( Amer) (mL/min) >60 Est GFR (Non-Af Amer) (mL/min) 54.03 Glucose (70 - 110 mg/dL) 132 Plasma Calcium (8.5 - 10.1 mg/dL) 8.1 Hematology WBC (4.5 - 11.5 K/uL) 12.7 RBC (4.00 - 5.20 M/uL) 4.27 Hgb (12.0 - 16.0 gm/dL) 12.4 Hct (36.0 - 46.0 %) 39.7 MCV (80 - 100 fL) 93 MCH (26 - 34 pg) 29 RDW (11.6 - 14.8 %) 12.3 [place] % (53 - 90) 90.5 Lymph % (Auto) (25 - 40 %) 7.0 [place] % (Auto) (3 - 14 %) 2.5 Plt Count, EDTA (150 - 400 K/uL) 261 PUBS MCHC (31 - 37 g/dL) 31 Imaging REPORT #: [id number] DATE OF EXAM(S): 08/19/16 PROCEDURE: CT THORAX WITH CONTRAST INDICATION: Persistent dyspnea and wheezing. TECHNIQUE: 100 ml of Isovue 300 injected intravenously and axial images were obtained of the entire thorax with sagittal and coronal reconstructions. COMPARISON: Compared to chest x-ray (08/17/2016) and CT thorax (04/27/2014). FINDINGS: Mild bilateral mid and upper lung emphysematous changes. Mild bibasilar linear scarring. Lungs are otherwise clear. Heart and mediastinum are normal. Thorax is normal. IMPRESSION: 1. Chronic obstructive pulmonary disease with mild bilateral emphysematous changes. 2. Otherwise negative CT thorax. All CT scans at this facility use dose modulation, iterative reconstruction, and/or weight-based dosing when appropriate to reduce radiation dose to as low as reasonably achievable. Dictated by: MARCIA LEMA MD D: RILEY;08/19/16 1333 <Electronically signed by MARCIA LEMA MD in [place]> 08/19/16 2030 Assessment and Plan Problem List 1. COPD exacerbation Status Acute Plan We will continue with plan of by mouth prednisone 40 mg daily continue with DuoNeb nebs and albuterol nebs when necessary. Continue with IV ceftriaxone and azithromycin as ordered yesterday. 2. Tobacco abuse Status Resolved Plan She currently is tobacco free 11 months and review the importance of continuing that way.
[2016-08-20 14:35] VITALS: BP 116/73
[2016-08-20 18:20] VITALS: BP 111/73
[2016-08-20 22:22] VITALS: BP 109/63
[2016-08-21 02:38] VITALS: BP 106/70
[2016-08-21 07:03] VITALS: BP 116/72
--- NOTE | 2016-08-21 07:59 | Progress Note ---
Subjective General 60yo female with smoking history and dust exposure at work sevferal weeks ago admitted with COPD exacerbation (COPD is new dx), not improved with outpt rx. Improved in hospital ":more than half way better". Tolerating ambulation on the floor with O2 and mild dyspnea. Still on IV steroids. Physical Exam Vital Signs / I&Os Vital Signs Date Time Temp Pulse Resp B/P Pulse O2 O2 Flow FiO2 Ox Delivery Rate 08/21 0703 97.9 72 18 116/72 94 Room Air 0.0 08/21 0238 97.7 62 20 106/70 96 Room Air 08/21 0027 Room Air 08/20 2222 97.9 78 20 109/63 97 Room Air 08/20 1820 98.2 85 20 111/73 100 08/20 1535 Room Air 08/20 1435 98.2 87 20 116/73 94 08/20 1016 97.9 80 18 121/67 96 Room Air 0.0 08/20 0814 Room Air 0.0 I&O 08/20 0800 08/20 1600 08/21 0000 Intake Total 640 760 240 Output Total 525 1425 1050 Balance 115 -665 -810 General Appearance Alert, Oriented X3, Cooperative, No acute distress Lungs Mild bilateral wheeze. Cardiovascular Regular rate and rhythm Abdomen Soft, No tenderness, No guarding Extremities No cyanosis, No clubbing, No edema Skin No Rashes Assessment and Plan Problem List 1. COPD exacerbation Status Acute Plan Continue current meds but change to po. Continue to increase acdtivity. Will need outpt pulmonary consult. 2. Tobacco abuse Status Resolved Plan Congratulated on cessation.
[2016-08-21 10:48] VITALS: BP 118/69
[2016-08-21 14:41] VITALS: BP 113/67
[2016-08-21 18:16] VITALS: BP 117/66
[2016-08-21 22:29] VITALS: BP 119/70
[2016-08-22 02:42] VITALS: BP 117/76
[2016-08-22 06:19] VITALS: BP 129/74
[2016-08-22] MEDS ORDERED: CEPHALEXIN500 MG PO (06:59)
[2016-08-22] MEDS ORDERED: PREDNISONE20 MG PO (07:01)
--- NOTE | 2016-08-22 07:04 | Provider's Discharge Care Plan ---
Problem, Goal, Plan Problem List 1. COPD exacerbation Goals: Improve disease control Instructions: Take meds as directed, Stop smoking, Pulmonary consult recommended 2. Tobacco abuse Goals: Improved health/wellness Instructions: Continue not smoking
[2016-08-22] MEDS ORDERED: PROAIR HFA IN (07:10)
[2016-08-22] MEDS ORDERED: SYMBICORT1 AE1 PO (07:10)
--- NOTE | 2016-08-22 07:32 | DISCHARGE SUMMARY ---
ADMIT DATE: 08/13/2016 DISCHARGE DATE: 08/22/2016 ADMITTING DIAGNOSES: 1. Chronic obstructive pulmonary disease, acute exacerbation 2. Smoking history with recent cessation DISCHARGE DIAGNOSES: 1. Chronic obstructive pulmonary disease, acute exacerbation 2. Smoking history with recent cessation BRIEF HISTORY: A 60-year-old female admitted with gradual onset over several days of increasing shortness of breath, unsuccessfully treated as an outpatient and therefore hospitalized. HOSPITAL COURSE: She was placed on IV steroids and IV antibiotics and IV bronchodilators, with slow, gradual improvement. She continued to improve to the point she is tolerating oral medications and ambulating and eating independently. She denied chest pain. She did have some shortness of breath with walking more than 100 feet, but this represented a continued steady improvement. White blood cell count was elevated, probably due to steroids. She was transitioned to oral steroids by discharge. DISCHARGE INSTRUCTIONS/MEDICATIONS: Disposition: Home. Discharge medications: Cephalexin 500 mg p.o. t.i.d. Prednisone 20 mg p.o. daily. Budesonide (Symbicort) 1 puff twice daily. Albuterol 2 puffs q.4 hours p.r.n. wheeze. Special instructions: Light activity at home. Avoid dust exposure. Follow up with primary physician in 1 week.
== END 2016-08-22 09:20 | disposition home or self-care (01) | DRG 192 ==
LOC: ED SRH 17:44 → ACUTE2 SRH 21:32 → TRANS SRH 21:32 → ACUTE2 SRH 23:29
PROVIDERS: ADMIT Family Medicine
DX: J44.1 Chronic obstructive pulmonary disease with (acute) exacerbation (principal); Z87.891 Personal history of nicotine dependence
CPT/HCPCS: 29230; 90004; 90047; 90065; 90074; 90100; 91556; 92720; 93004; 95059

== ENCOUNTER 2016-12-10 11:06 | Outpatient (CLI) | payer OTHER ==
[~2016-12-10 11:06] MED LIST changes: +CEPHALEXIN500 MG PO; +PREDNISONE20 MG PO; +PROAIR HFA IN; +SYMBICORT1 AE1 PO
--- NOTE | 2016-12-10 12:08 | DIAGNOSTIC IMAGING REPORT ---
PROCEDURE: XR SHOULDER 2 OR MORE VW-LEFT INDICATION: SHOULDER PX,INJURY TECHNIQUE: Three views of the left shoulder COMPARISON: None. FINDINGS: Normal mineralization. No fractures. Minor periarticular spurring along the inferior humeral head. No dislocation or separation. No suspicious soft tissue calcifications. The visible rib arcs and the underlying lung appear normal. IMPRESSION: 1. Intact left shoulder. 2. Mild osteoarthritic change of the glenohumeral joint.
== END 2016-12-10 23:00 ==
LOC: XR SRH 11:06
DX: M25.512 Pain in left shoulder (principal); S49.92XA Unspecified injury of left shoulder and upper arm, initial encounter

== ENCOUNTER 2017-01-11 14:56 | Outpatient (CLI) | payer OTHER ==
--- NOTE | 2017-01-11 17:23 | DIAGNOSTIC IMAGING REPORT ---
PROCEDURE: MR UPPER EXTREMITY W/O CONT-LT INDICATION: LT SHOULDER INJURY,LIMITED ROM TECHNIQUE: PD and FAT-SAT PD, axial, and coronal-oblique images. PD and STIR sagittal-oblique images. COMPARISON: Left shoulder x-ray 12/10/2016 FINDINGS: Mild AC joint degenerative changes and type 2 acromion resulting in mild impingement. Mild tendinosis but intact rotator cuff. There is a small subdeltoid fluid collection. Rotator interval edema suggestive of a tear associated with a small subcoracoid bursal effusion. Mild degenerative changes of the glenohumeral joints. Heterogeneous signal of the superior labrum posteriorly, possible tear. Normal bicipital tendon. Small joint effusion. No suspicious osseous lesions. IMPRESSION: 1. Mild AC joint degenerative changes and type 2 acromion resulting in mild impingement 2. Tendinosis but no evidence of a rotator cuff tear 3. Rotator interval tear associated with sub coracoid bursitis 4. Small subdeltoid fluid collection consistent with bursitis 5. Heterogeneous superior labrum, possible tear. 6. Small joint effusion
== END 2017-01-11 23:00 | disposition home or self-care (01) ==
LOC: MRI SRH 14:56
DX: M19.012 Primary osteoarthritis, left shoulder (principal); M75.42 Impingement syndrome of left shoulder; M75.102 Unspecified rotator cuff tear or rupture of left shoulder, not specified as traumatic; M75.52 Bursitis of left shoulder